=== PATIENT | male | born 1985 | race Caucasian/White ===

== ENCOUNTER 2019-05-15 23:21 | Emergency (ER) | payer OTHER ==
--- NOTE | 2019-05-16 00:35 | RADIOLOGY REPORT (SQ) ---
Chest one view on 05/16/2019 at 12:11 AM CLINICAL INDICATION: Chest pain COMPARISON: None FINDINGS: The lungs are clear. Cardiac, hilar and mediastinal contours are within normal limits. Pulmonary vascularity is within normal limits. No bony abnormality is noted. IMPRESSION: No active disease.
[2019-05-16 01:09] LABS: ABSOLUTE BASOPHILS # (AUTO) 0.1 10^3/uL (0.0-0.2); ABSOLUTE EOSINOPHILS # (AUTO) 0.1 10^3/uL (0.0-0.6); ABSOLUTE LYMPHOCYTES (AUTO) 4.2 10^3/uL (0.5-4.7); ABSOLUTE MONOCYTES (AUTO) 0.8 10^3/uL (0.1-1.4); ABSOLUTE NEUT (AUTO) 4.4 10^3/uL (1.7-8.2); BASOPHILS % (AUTO) 0.8 % (0-2); HEMATOCRIT 45.2 % (37.9-51.0); HEMOGLOBIN 15.8 g/dL (13.5-17.0); LYMPHOCYTES % (AUTO) 44.2 % (13-45); MEAN CORPUSCULAR HEMOGLOBIN 30.8 pg (27.0-33.4); MEAN CORPUSCULAR HGB CONC 34.9 g/dL (32.0-36.0); MEAN CORPUSCULAR VOLUME 88 fl (80-97); MONOCYTES % (AUTO) 8.3 % (3-13); PLATELET COUNT 248 10^3/uL (150-450); RED BLOOD COUNT 5.11 10^6/uL (4.35-5.55); RED CELL DISTRIBUTION WIDTH 13.1 % (11.5-14.0); SEGMENTED NEUTROPHILS % (AUTO) 45.7 % (42-78); TOTAL CELLS COUNTED % (AUTO) 100 %; WHITE BLOOD COUNT 9.6 10^3/uL (4.0-10.5)
[2019-05-16 01:26] LABS: ALBUMIN 4.3 g/dL (3.5-5.0); ALKALINE PHOSPHATASE 80 U/L (38-126); ANION GAP 8 (5-19); ASPARTATE AMINO TRANSFERASE 28 U/L (17-59); BILIRUBIN,TOTAL 0.4 mg/dL (0.2-1.3); BLOOD UREA NITROGEN 19 mg/dL (7-20); CALCIUM 9.5 mg/dL (8.4-10.2); CARBON DIOXIDE 25 mmol/L (22-30); CHLORIDE 105 mmol/L (98-107); GLUCOSE 117 mg/dL (75-110); POTASSIUM 4.2 mmol/L (3.6-5.0); TOTAL PROTEIN 7.1 g/dL (6.3-8.2)
--- NOTE | 2019-05-16 01:52 | ER Document Report ---
HPI - HPI Time Seen by Provider: 05/15/19 23:44 Pain Level: 2 Notes: Otherwise healthy 34-year-old male presenting to the emergency department with multiple complaints. Patient is complaining of an area of numbness in his left thigh. He states the area of numbness occurs sometimes while he is having intercourse. He is also complaining of cough and chest pain with cough. He denies any nausea, vomiting, diarrhea or fever. He denies any known exposure to any COVID-19 patients. Past Medical History - General Information source: Patient - Social History Smoking Status: Former Smoker Frequency of alcohol use: None Drug Abuse: None Family History: Reviewed & Not Pertinent Patient has suicidal ideation: No Patient has homicidal ideation: No Endocrine Medical History: Reports: Hx Diabetes Mellitus Type 2 - Patient reports borderline diabetes Psychiatric Medical History: Reports: Hx Anxiety - Self diagnosed Vertical Provider Document - CONSTITUTIONAL Notes: PHYSICAL EXAMINATION: GENERAL: Well-appearing, well-nourished and in no acute distress. HEAD: Atraumatic, normocephalic. EYES: Pupils equal round and reactive to light, extraocular movements intact, sclera anicteric, conjunctiva are normal. ENT: Nares patent, oropharynx clear without exudates. Moist mucous membranes. NECK: Normal range of motion, supple without lymphadenopathy LUNGS: Breath sounds clear to auscultation bilaterally and equal. No wheezes rales or rhonchi. HEART: Regular rate and rhythm without murmurs ABDOMEN: Soft, nontender, nondistended abdomen. No guarding, no rebound. No masses appreciated. Musculoskeletal: Normal range of motion, no pitting or edema. No cyanosis. NEUROLOGICAL: Cranial nerves grossly intact. Normal speech, normal gait. Normal sensory, motor exams PSYCH: Normal mood, normal affect. SKIN: Warm, Dry, normal turgor, no rashes or lesions noted. Course - Re-evaluation Re-evalutation: Laboratory 05/16/19 05/16/19 05/16/19 00:55 00:55 00:55 WBC 9.6 RBC 5.11 Hgb 15.8 Hct 45.2 MCV 88 MCH 30.8 MCHC 34.9 RDW 13.1 Plt Count 248 Lymph % (Auto) 44.2 Marion % (Auto) 8.3 Eos % (Auto) 1.0 Baso % (Auto) 0.8 Absolute Neuts (auto) 4.4 Absolute Lymphs (auto) 4.2 Absolute Monos (auto) 0.8 Absolute Eos (auto) 0.1 Absolute Basos (auto) 0.1 Seg Neutrophils % 45.7 D-Dimer Sodium 137.7 Potassium 4.2 Chloride 105 Carbon Dioxide 25 Anion Gap 8 BUN 19 Creatinine 1.13 Est GFR ( Amer) > 60 Est GFR (MDRD) Non-Af > 60 Glucose 117 H Calcium 9.5 Total Bilirubin 0.4 Direct Bilirubin 0.0 Neonat Total Bilirubin Not Reportable Neonat Direct Bilirubin Not Reportable Neonat Indirect Bili Not Reportable AST 28 ALT 49 Alkaline Phosphatase 80 Troponin I < 0.012 Total Protein 7.1 Albumin 4.3 05/16/19 00:55 WBC RBC Hgb Hct MCV MCH MCHC RDW Plt Count Lymph % (Auto) Marion % (Auto) Eos % (Auto) Baso % (Auto) Absolute Neuts (auto) Absolute Lymphs (auto) Absolute Monos (auto) Absolute Eos (auto) Absolute Basos (auto) Seg Neutrophils % D-Dimer < 0.27 Sodium Potassium Chloride Carbon Dioxide Anion Gap BUN Creatinine Est GFR ( Amer) Est GFR (MDRD) Non-Af Glucose Calcium Total Bilirubin Direct Bilirubin Neonat Total Bilirubin Neonat Direct Bilirubin Neonat Indirect Bili AST ALT Alkaline Phosphatase Troponin I Total Protein Albumin Chest X-Ray 05/15/19 23:49 IMPRESSION: No active disease. Work-up today was reassuring. D-dimer is negative. EKG showed a sinus rhythm, normal rate, normal axis, no ST ST segment elevations or depressions to suggest ischemia. Chest x-ray unremarkable. Patient given a copy of all of his lab findings so he can follow-up with his primary care provider. Patient verbalizes understanding and agreement with this plan. - Vital Signs Vital signs: Temp Pulse Resp BP Pulse Ox 98.6 F 101 H 20 155/89 H 98 05/15/19 23:22 05/15/19 23:22 05/15/19 23:22 05/15/19 23:22 05/16/19 00:58 - Laboratory Result Diagrams: 05/16/19 00:55 05/16/19 00:55 Laboratory results interpreted by me: 05/16/19 00:55 Glucose 117 H Discharge - Discharge Clinical Impression: Anterior thigh numbness Condition: Stable Disposition: HOME, SELF-CARE Additional Instructions: Your work-up here in the emergency department today was reassuring. All of your blood work was within normal limits. Her chest x-ray was negative. Your EKG was also normal. We did a specific test called a d-dimer which helps us to rule out blood clots. Your d-dimer was not elevated so there is no indication at this time for further work-up as far as looking for deep vein thrombosis in your leg or pulmonary embolism in your chest. I do believe you have a viral upper respiratory illness that is causing your cough and shortness of breath. I do also think that anxiety is a component of this. I have written you a prescription for some medication that will help with anxiety. Please make an appointment with your primary care provider for follow-up. I have given you copy of all your labs as well as your EKG and chest x-ray for their review. Prescriptions: Hydroxyzine Pamoate [Vistaril 25 mg Capsule] 25 mg PO Q6H PRN #20 capsule PRN Reason: Anxiety Referrals: [facility] [Primary [facility]] - Follow up as needed
[2019-05-16] MEDS ORDERED: HYDROXYZINE PAMOATE 25 MG CAPSULE PO ONE (01:56)
[2019-05-16 02:14] VITALS: BP 142/76
--- NOTE | 2019-05-16 06:30 | EKG REPORT ---
SEVERITY:- NORMAL ECG - SINUS RHYTHM : Confirmed by: Lamonte Bartlett MD 16-May-2019 06:30:00
== END 2019-05-16 02:35 | disposition home or self-care (01) ==
LOC: ER 23:21
DX: R20.0 Anesthesia of skin (principal); R05 Cough; R07.9 Chest pain, unspecified; Z87.891 Personal history of nicotine dependence
CPT/HCPCS: 36415; 71045; 80053; 84484; 85025; 85379; 93005; 93010; 99284